=== PATIENT | male | born 1970 | race Asian ===

== ENCOUNTER → 2018-06-01 | Outpatient (CLI) | payer OTHER | LOC: CAT 14:26 | DX: Z13.6 Encounter for screening for cardiovascular disorders (principal); E78.00 Pure hypercholesterolemia, unspecified ==

== ENCOUNTER → 2018-06-23 | Outpatient (CLI) | payer OTHER ==
--- NOTE | 2018-06-23 15:15 | 2DMMODE ---
[facility] [place] [address] 2 D/M-MODE ECHOCARDIOGRAM Name: VÍCTOR FELIZ Room #: REG [facility]#: [id number] Admission: 06/23/18 Attend Phys: Alejo Hobson Discharge: Date of : 70 Date of Service: 06/23/18 1442 Report #: [id number] THIS REPORT FOR: //name// APPROVED REPORT Study performed: 06/23/2018 13:38:07 EXAM: Comprehensive 2D, Doppler, and color-flow Echocardiogram Patient Location: Out-Patient Status: routine BSA: 1.93 HR: 75 bpm BP: 120/72 mmHg Rhythm: NSR Other Information Study Quality: Good Indications Palpitations 2D Dimensions RVDd: 30.00 mm IVSd: 10.67 (7-11mm) LVOT Diam: 22.11 (18-24mm) LVDd: 42.10 mm PWd: 10.99 (7-11mm) Ascending Ao: 32.27 (22-36mm) LVDs: 27.53 (25-40mm) Aortic Root: 35.66 mm IVC: 15.00 mm Volumes Left Atrial Volume (Systole) Single Plane 4CH: 17.82 mL Single Plane 2CH: 32.48 mL LA ESV Index: 14.58 mL/m2 Aortic Valve AoV Peak Giovanni.: 1.04 m/s AO Peak Gr.: 4.33 mmHg LVOT Max P.59 mmHg LVOT Max V: 0.80 m/s BO Vmax: 2.97 cm2 Mitral Valve E/A Ratio: 1.3 MV Decel. Time: 234.73 ms MV E Max Giovanni.: 0.57 m/s MV A Giovanni.: 0.45 m/s [facility] [place] [address] [address] [place] [address] 2 D/M-MODE ECHOCARDIOGRAM Name: VÍCTOR FELIZ Room #: REG [facility]#: [id number] Admission: 06/23/18 Attend Phys: Alejo Hobson Discharge: Date of : 70 Date of Service: 06/23/18 1442 Report #: [id number] PHT: 68.07 ms IVRT: 100.35 ms Pulmonary Valve PV Peak Giovanni.: 0.86 m/s PV Peak Gr.: 2.97 mmHg Pulmonary Vein P Vein S: 0.61 m/s P Vein D: 0.50 m/s P Vein S/D Ratio: 1.22 Tricuspid Valve RAP Estimate: 5.00 mmHg Left Ventricle The left ventricle is normal size. There is normal left ventricular wall thickness. The left ventricular systolic function is normal. The left ventricular ejection fraction is within the normal range. LVEF is 60-65%. Right Ventricle The right ventricle is normal size. The right ventricular systolic function is normal. Atria The left atrium size is normal. The right atrium size is normal. Aortic Valve The aortic valve is normal in structure. No aortic regurgitation is present. There is no aortic valvular stenosis. Mitral Valve The mitral valve is normal in structure. Trace mitral regurgitation. No evidence of mitral valve stenosis. Tricuspid Valve The tricuspid valve is normal in structure. Trace tricuspid regurgitation. Unable to assess PA pressure. Pulmonic Valve Pulmonic valve is not well visualized. Mild pulmonic regurgitation. [facility] [place] [address] 2 D/M-MODE ECHOCARDIOGRAM Name: VÍCTOR FELIZ Room #: REG [facility]#: [id number] Admission: 06/23/18 [facility]end [facility]: [facility] Dis[facility]: Date of : 70 Date of Service: 06/23/18 1442 Report #: [id number] Great Vessels The aortic root is normal in size. The ascending aorta is normal in size. IVC is normal in size and collapses >50% with inspiration. Pericardium There is no pericardial effusion. <Conclusion> The left ventricle is normal size. There is normal left ventricular wall thickness. The left ventricular systolic function is normal. The right ventricle is normal size. The left atrium size is normal. The right atrium size is normal. The aortic valve is normal in structure. Trace mitral regurgitation. Trace tricuspid regurgitation. <ELECTRONICALLY SIGNED> By: Giovani Dalal MD 06/23/18 1442 [id number] Giovani Dalal MD /INF
== END ==
LOC: CV 13:18
DX: I37.1 Nonrheumatic pulmonary valve insufficiency (principal); I49.9 Cardiac arrhythmia, unspecified